=== PATIENT | female | born 1980 | race Two or more races ===

== ENCOUNTER 2016-11-22 17:40 | Inpatient (IN) | payer OTHER ==
[~2016-11-22] VITALS: Ht 152.4 cm; Wt 97.5 kg
[~2016-11-22 17:40] MED LIST: PEPCID20 MG PO; PRENATAL VITAMI1 T10 PO
[2016-11-22] MEDS ORDERED: FERROUS SULFAT325 MG PO (18:19)
[2016-11-22] MEDS ORDERED: TERBUTALINE 1 MG/ML VIAL SUBQ SCH (18:20)
[2016-11-22] MEDS ORDERED: BETAMETH ACET/BETAMETH NA PH 30 MG/5 ML VIAL IM PRN ×3 (18:20→22:05)
[2016-11-22] MEDS ORDERED: BETAMETH ACET/BETAMETH NA PH 30 MG/5 ML VIAL IM ONE (18:35)
[2016-11-22] MEDS ORDERED: TERBUTALINE 1 MG/ML VIAL SUBQ ONE (18:36)
[2016-11-23] MEDS ORDERED: BETAMETH ACET/BETAMETH NA PH 30 MG/5 ML VIAL IM SCH
[2016-11-23] MEDS ORDERED: TERBUTALINE 2.5 MG TAB ONE ×6 (00:01→23:22)
[2016-11-23] MEDS: TERBUTALINE 2.5 MG TAB PO SCH ×6 (00:03→20:23)
[2016-11-23] MEDS ORDERED: BETAMETH ACET/BETAMETH NA PH 30 MG/5 ML VIAL IM ONE (07:02)
[2016-11-23] MEDS ORDERED: AMPICILLIN 2,000 MG VIAL ONE ×3 (08:02→19:58)
[2016-11-23] MEDS: LACTATED RINGERS 1,000 ML IV SCH ×2 (08:09→18:30)
[2016-11-23] MEDS: AMPICILLIN 2,000 MG in NACL 0.9% 100 ML IV SCH ×3 (08:09→20:23)
--- NOTE | 2016-11-23 08:23 | NUR ---
PATIENT HAS BEEN SCREENED AND CATEGORIZED MODERATE RISK. PATIENT WILL BE SEEN WITHIN 3-5 DAYS OF ADMISSION. 11/25/16 TO 11/27/[address]
[2016-11-23] MEDS: glyBURIDE 5 MG TAB PO SCH (09:52)
[2016-11-23] MEDS ORDERED: ACETAMINOPHEN 325 MG TAB ONE (20:27)
[2016-11-24] MEDS: ACETAMINOPHEN 325 MG TAB PO PRN ×3 (00:44→21:28)
[2016-11-24] MEDS ORDERED: AMPICILLIN 2,000 MG VIAL ONE ×3 (01:56→13:52)
[2016-11-24] MEDS: AMPICILLIN 2,000 MG in NACL 0.9% 100 ML IV SCH (02:05)
[2016-11-24] MEDS ORDERED: ACETAMINOPHEN 325 MG TAB ONE ×4 (02:15→21:09)
[2016-11-24] MEDS ORDERED: TERBUTALINE 2.5 MG TAB ONE ×3 (03:59→22:26)
[2016-11-24] MEDS: TERBUTALINE 2.5 MG TAB PO SCH (04:04)
[2016-11-24] MEDS: glyBURIDE 5 MG TAB PO SCH (08:00)
[2016-11-24] MEDS ORDERED: ONDANSETRON 4 MG/2 ML VIAL IVP PRN (08:40)
[2016-11-24] MEDS ORDERED: ONDANSETRON 4 MG/2 ML VIAL ONE ×3 (08:53→18:34)
[2016-11-24] MEDS ORDERED: TERBUTALINE 2.5 MG TAB PO SCH (18:00)
[2016-11-24] MEDS ORDERED: NALBUPHINE HYDROCHLORIDE 10 MG/ML VIAL ONE (22:07)
[2016-11-25] MEDS ORDERED: TERBUTALINE 2.5 MG TAB ONE ×6 (02:00→22:37)
[2016-11-25] MEDS ORDERED: ONDANSETRON 4 MG/2 ML VIAL IM PRN (04:35)
[2016-11-25] MEDS ORDERED: ONDANSETRON 4 MG/2 ML VIAL ONE (04:43)
[2016-11-25] MEDS: glyBURIDE 5 MG TAB PO SCH (07:49)
--- NOTE | 2016-11-25 13:16 | NUR ---
FAXED INITIAL REVIEW TO [facility] [phone] PHONE MARCH [phone]
[2016-11-26] MEDS ORDERED: MISOPROSTOL 25 MCG TAB ONE (02:01)
[2016-11-26] MEDS ORDERED: TERBUTALINE 2.5 MG TAB ONE ×4 (02:08→13:53)
[2016-11-26] MEDS: glyBURIDE 5 MG TAB PO SCH (07:55)
--- NOTE | 2016-11-26 11:51 | NUR ---
LATE ENTRY FROM 11/25/16March FROM [facility] WAS CALLED ABOUT POSSIBLE TRANSFER FOR HIGHER LEVEL OF CARE.- SHE SAID TO USE [facility], [facility], [facility] [place], AND LATER SHE SAID TRY [facility]. SHE SAID IF WANTED BABS, SHE WOULD HAVE TO GO TO HER [employer]PER[employer]. KAITLIN [employer]OUN[employer]ELT [employer]PER[employer] BACK IN OB AND GIVE HER THE LIST OF HOSPITALS FOR POS. TRANSFER FOR HER TO TRY. NO ORDER YET. Addendum: 11/26/16 at 1328 by Arline Rodriguez PHONE NUMBERS [facility] [phone] [facility] [phone] [facility] [phone] [facility] [place] [phone]
[2016-11-26 14:24] VITALS: BP 124/70
--- NOTE | 2016-11-26 14:39 | NUR ---
SPOKE WITH GABI RN . SHE SAID THAT DR. LIZ SPOKE WITH PHYSICIAN AT [facility] AND THEY WILL ACCEPT THE PATIENT. I CALLED POPEYE FROM [facility] AT [phone] AND SHE SAID THE OB DOCTOR, WILL BE DR. ROBISON AND THE PERINATOLOGIST WILL BE DR. CORNELIUS. PATIENT SHOULD GO TO ROOM 212 , THE [facility]ND F[facility]OR [facility]. PER ROHIT, THE AUTH FOR TRANSPORT [id number]. I CALLED AND INFORMED GABI BACK. FAXED CONCURRENT REVIEW TO [facility] [phone] PHONE MARCH [phone]. I CALLED MARCH AND INFORMED HER THAT PATIENT WILL BE TRANSFERED TODAY TO [facility].
== END 2016-11-26 15:00 | disposition short-term general hospital (02) | DRG 566 ==
LOC: MLD 17:40 → MFCC 21:23 → OBSVTOIN 11-24 17:40
PROVIDERS: ADMIT Obstetrics & Gynecology; ATTEND Obstetrics & Gynecology
DX: O24.419 Gestational diabetes mellitus in pregnancy, unspecified control (principal); Z68.41 Body mass index [BMI] 40.0-44.9, adult; O40.3XX0 Polyhydramnios, third trimester, not applicable or unspecified; O34.219 Maternal care for unspecified type scar from previous cesarean delivery; Z3A.34 34 weeks gestation of pregnancy; O99.213 Obesity complicating pregnancy, third trimester; E66.9 Obesity, unspecified
CPT/HCPCS: G0378 ×48

== ENCOUNTER 2020-09-14 06:40 | Emergency (ER) | payer MEDICAID, OTHER ==
[~2020-09-14] VITALS: Ht 157.5 cm; Wt 90.7 kg
[~2020-09-14 06:40] MED LIST changes: +FERR325E14 PO; -PEPCID20 MG PO; +PREN-385 PO; -PRENATAL VITAMI1 T10 PO
[2020-09-14 06:46] VITALS: BP 117/71
--- NOTE | 2020-09-14 06:50 | NUR ---
Pt taken to bed 8.
--- NOTE | 2020-09-14 07:15 | NUR ---
40/F c/o right shoulder pain x4 days. Pt denies any injury or fall. Pt c/o 10/10 aching, non radiating, non provoked pain to right shoulder. Limited ROM d/t pain.
[2020-09-14] MEDS ORDERED: KETOROLAC 60 MG/2 ML VIAL IM ONE (07:30)
--- NOTE | 2020-09-14 07:38 | NUR ---
X-Ray at bedside.
--- NOTE | 2020-09-14 08:42 | NUR ---
Upon trying to discharging patient, pt expressed she had another episode of sharp pain to right upper chest/shoulder area. Dr. Gomez made aware and spoke with patient. Dr. Gomez inputting new orders for patient, lab draw and EKG.
[2020-09-14] MEDS ORDERED: ASPIRIN 325 MG TAB PO ONE (08:50)
[2020-09-14] MEDS ORDERED: CYCLOBENZAPRINE 10 MG TAB PO ONE (08:50)
[2020-09-14 09:42] LABS: HEMATOCRIT 42.2 % (36-48); MEAN CORPUSCULAR HEMOGLOBIN 30 pg (27-31); MEAN CORPUSCULAR HGB CONC 33 g/dL (33-37); MEAN CORPUSCULAR VOLUME 89.3 fL (80-94); NEUTROPHILS % (AUTO) 69.6 % (42.2-75.2); PLATELET COUNT (AUTO) 260 K/uL (140-450); RED BLOOD CELL COUNT(AUTO) 4.73 MIL/uL (4.20-5.40); RED CELL DISTRIBUTION WIDTH 13.7 % (11.6-13.7); WHITE BLOOD COUNT (AUTO) 6.9 K/uL (4.8-10.8)
[2020-09-14 09:43] LABS: BASOPHILS % (AUTO) 0.4 % (0.0-2.0); EOSINOPHILS # (AUTO) 0.1 K/uL (0-0.4); EOSINOPHILS % (AUTO) 1.4 % (0.0-4.0); LYMPHOCYTES # (AUTO) 1.7 K/uL (2.5-16.5); LYMPHOCYTES % (AUTO) 24.1 % (20.5-51.1); MONOCYTES # (AUTO) 0.3 K/uL (0.8-1.0); MONOCYTES % (AUTO) 4.5 % (1.7-9.3); NEUTROPHILS # (AUTO) 4.8 K/uL (1.8-7.7)
[2020-09-14 10:07] LABS: ANION GAP 13.4 (8-16); CARBON DIOXIDE 27.1 mmol/L (21-32); POTASSIUM 4.5 mmol/L (3.5-5.1)
[2020-09-14 10:08] LABS: CREATININE 0.6 mg/dL (0.6-1.3)
[2020-09-14 10:32] VITALS: BP 117/71
--- NOTE | 2020-09-14 10:32 | NUR ---
Patient discharged with v/s stable. Written and verbal after care instructions given and explained. Patient alert, oriented and verbalized understanding of instructions. Ambulatory with steady gait. All questions addressed prior to discharge. ID band removed. Patient advised to follow up with PMD. Rx of flexeril & naprosyn given. Patient educated on indication of medication including possible reaction and side effects. Opportunity to ask questions provided and answered.
== END 2020-09-14 10:32 | disposition home or self-care (01) ==
LOC: MED 06:40
DX: R07.9 Chest pain, unspecified (principal); M79.10 Myalgia, unspecified site; Z79.899 Other long term (current) drug therapy
CPT/HCPCS: 36415; 71045; 80048; 84484; 85025; 93005; 96372; 99285; J1885